=== PATIENT | female | born 1990 | race Two or more races ===

== ENCOUNTER 2022-03-22 02:23 | Emergency (ER) | payer OTHER ==
[~2022-03-22] VITALS: Ht 157.5 cm; Wt 77.1 kg
[2022-03-22] MEDS ORDERED: KETO10TA2 PO (06:10)
== END 2022-03-22 06:18 | disposition home or self-care (01) ==
LOC: ER 02:23
DX: S93.401A Sprain of unspecified ligament of right ankle, initial encounter (principal); W18.30XA Fall on same level, unspecified, initial encounter; Y93.9 Activity, unspecified; Y92.9 Unspecified place or not applicable